=== PATIENT | female | born 2000 | race Caucasian/White ===

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

== ENCOUNTER 2019-02-12 16:05 | Emergency (ER) | payer SELFPAY ==
[~2019-02-12] VITALS: Ht 162.6 cm; Wt 150.9 kg
[~2019-02-12 16:05] MED LIST changes: +AMITRIPTYLINE H25 M1 PO; +EFFEXOR 3737.5 MG/TA PO; +GLUCOPHAGE500 MG/TAB PO; +PRINZIDE 12.5 M1 TAB PO
[2019-02-12 16:09] VITALS: TEMP 97.6
[2019-02-12 16:52] LABS: COLLECTION METHOD CLEAN CATCH
[2019-02-12 17:03] LABS: BASO % 0.5 % (0.0-2.0); EOS % 0.2 % (0-4.0); GRAN # 4.9 (1.4-6.5); HEMATOCRIT 42.6 % (35.0-45.0); HEMOGLOBIN 13.6 g/dl (12.0-15.0); LYMPH # 2.8 (1.2-3.4); LYMPH % 33.8 % (20.0-51.0); MEAN CELL VOLUME 77 fl (80.0-95.0); MEAN CORPUSCULAR HEMOGLOBIN 25 pg (26.0-32.0); MEAN CORPUSCULAR HGB CONC 32 g/dl (33.0-37.0); MEAN PLATELET VOLUME 10.5 fl (7.4-10.4); MONO # 0.6 (0.1-0.6); MONO % 7.1 % (1.7-9.3); PLATELET COUNT 321 K/mm3 (130-400); RED BLOOD COUNT 5.51 M/mm3 (4.10-5.30)
[2019-02-12 17:04] LABS: MUCOUS Present /lpf; PH 9 (5-8); URINE APPEARANCE Hazy; URINE BACTERIA Rare /hpf; URINE BILIRUBIN Negative (NEGATIVE); URINE BLOOD Negative (NEGATIVE); URINE COLOR Yellow; URINE GLUCOSE Negative (NEGATIVE); URINE KETONE Negative (NEGATIVE); URINE LEUKOCYTE ESTERASE Trace (NEGATIVE); URINE NITRATE Negative (NEGATIVE); URINE PROTEIN(semi-quant) Negative (NEGATIVE); URINE RBC 0-2 /hpf
[2019-02-12 17:21] LABS: ALBUMIN 4.5 gm/dL (3.5-5.0); BILIRUBIN,TOTAL 0.4 mg/dL (0.0-1.0); C-REACTIVE PROTEIN 0.6 mg/dL (0.0-0.9); CALCIUM 9.6 mg/dL (8.4-10.2); CREATININE, serum 0.73 mg/dL (0.52-1.25); POTASSIUM 4.1 mmol/L (3.4-5.0); TOTAL PROTEIN 8.1 gm/dL (6.4-8.2)
[2019-02-12] MEDS ORDERED: ZOFRAN 4MG T4 MG/TAB PO (18:00)
[2019-02-12] MEDS ORDERED: PRIL40 PO (18:00)
[2019-02-12 18:11] VITALS: BP 118/74; PULSE 64
== END 2019-02-12 18:13 | disposition home or self-care (01) ==
LOC: COL.ER 16:05
PROVIDERS: Emergency Medicine
DX: R11.2 Nausea with vomiting, unspecified (principal); E11.9 Type 2 diabetes mellitus without complications; I10 Essential (primary) hypertension
CPT/HCPCS: J1885; J2405